=== PATIENT | female | born 1995 | race Caucasian/White ===

== ENCOUNTER → 2018-05-20 | Outpatient (CLI) | payer OTHER ==
[~2018-05-20] MED LIST: BIOT5TAB2 PO; METF-450 PO
--- NOTE | 2018-05-20 11:36 | RADIOLOGY IMAGING REPORT ---
FACILITY: [facility] [place] PATIENT NAME: Chau Choi : 1995 MR: [id number] V: [id number] EXAM DATE: ORDERING PHYSICIAN: DOUGLAS SALAZAR TECHNOLOGIST: Location: [facility] [place] Patient: Chau Choi : 1995 Visit/Account:[id number] Date of Sevice: 05/20/2018 [facility] [place] TRANVAGINAL NON-OB HISTORY: PCOS TECHNIQUE: Transvaginal ultrasound pelvis. COMPARISON: None. FINDINGS: Uterus: ; 7.4 cm length x 3.9 cm AP x 4.6 cm transverse. Myometrium: Unremarkable. Endometrium: Unremarkable; double thickness 9.6 mm. Cervix: Nabothian cyst. Ovaries: Right - 3.3 x 3.9 x 2.4 cm. There are numerous small follicles within the right ovary. Left - 4.3 x 2.4 x 2.1 cm. There are multiple small follicles in the left ovary Blood flow is documented in each ovary by duplex Doppler ultrasound. Tree both ovaries appear slight ly hypervascular Adnexa: Grossly unremarkable. Free pelvic fluid: Mild. IMPRESSION: There are numerous small follicles within both ovaries which can be seen with polycystic ovary syndro me as the clinical history suggests. Both ovaries also appear mildly hypervascular A mild amount of free pelvic fluid Report Dictated By: Kaylene Lord MD at 05/20/2018 11:28 AM Report E-Signed By: Kaylene Lord MD at 05/20/2018 11:31 AM WSN:[id number]
== END ==
LOC: RAD 09:59
PROVIDERS: ATTEND Obstetrics & Gynecology
DX: E28.2 Polycystic ovarian syndrome (principal); N88.8 Other specified noninflammatory disorders of cervix uteri